=== PATIENT | female | born 1965 | race Hispanic/Latino ===

== ENCOUNTER → 2022-04-05 | Outpatient (CLI) | payer OTHER ==
[~2022-04-05] MED LIST: AMLO-258 PO; IBUP-2070 PO; METO25TA6 PO; REGADENOSON 0.4 MG/5 ML PF SYG IVP SCH
== END | disposition home or self-care (01) ==
LOC: OIH 09:04
PROVIDERS: ATTEND Internal Medicine Cardiovascular Disease
DX: R07.9 Chest pain, unspecified (principal); I10 Essential (primary) hypertension
CPT/HCPCS: 78452; 93017; J2785; A9500 ×2; 96374

== ENCOUNTER → 2023-04-25 | Outpatient (CLI) | payer OTHER ==
[~2023-04-25] MED LIST changes: -REGADENOSON 0.4 MG/5 ML PF SYG IVP SCH
[2023-04-25 12:14] LABS: ALBUMIN 4.1 g/dL (3.5-5.0); CREATININE 0.7 mg/dL (0.5-1.5); POTASSIUM 4.2 mmol/L (3.5-5.1); TOTAL PROTEIN, SERUM 7.9 g/dL (6.0-8.3)
== END | disposition home or self-care (01) ==
LOC: LAB 08:05
PROVIDERS: ATTEND Physician Assistant
DX: E78.5 Hyperlipidemia, unspecified (principal); R07.9 Chest pain, unspecified
CPT/HCPCS: 36415; 80053; 80061

== ENCOUNTER 2025-05-29 11:09 | Emergency (ER) | payer BC, OTHER ==
[~2025-05-29] VITALS: Ht 170.2 cm; Wt 74.4 kg
--- NOTE | 2025-05-29 11:18 | ERN ---
ED Note History of Present Illness Stated Complaint: ANXIETY Chief Complaint: Anxiety/Panic Attack Time Seen by MD: 11:11 Dictation: PATIENT IS A 59-YEAR-OLD FEMALE HERE WITH HER WITH COMPLAINTS OF HAVING ANXIETY AND FEELING DEHYDRATED FOR LAST 2-3 WEEKS. SHE DENIES ANY CHEST PAIN BACK PAIN NO HEADACHE NO SPECIFIC COMPLAINTS. SHE STATES SHE HAD AN ENDOSCOPY DONE ON TUESDAY OF THIS WEEK AND WAS TOLD THAT HER EKG WAS ABNORMAL AND THAT CAUSED HER TO HAVE EVEN MORE ANXIETY. SHE STATES HER SECOND BALLER'S HIS DOCTORSHARSELWYN, HE WAS UNAVAILABLE TODAY AND WAS OUT OF THE OFFICE SO SHE CAME TO THE EMERGENCY ROOM. SHE STATES SHE HAS NOT BEEN TO SEE HER PRIMARY CARE DOCTOR SINCE THE FEELINGS OF ANXIETY AND DEHYDRATION IN THE LAST THREE WEEKS. Allergies: Coded Allergies: diltiazem (Unverified Allergy, Unknown, 03/03/22) lisinopril (Unverified Allergy, Unknown, 03/03/22) losartan (Unverified Allergy, Unknown, 03/03/22) omeprazole (Unverified Allergy, Unknown, 03/03/22) pantoprazole (Unverified Allergy, Unknown, 03/03/22) Home Meds Active Scripts Ibuprofen (Ibuprofen) 600 Mg Tablet, 600 MG PO Q6H PRN for PAIN, #30 TAB Prov:JAYLEN SPAIN MD 03/03/22 Reported Medications Amlodipine Besylate (Amlodipine Besylate) 10 Mg Tablet, 10 MG PO DAILY for 30 Days, #30 TAB 0 Refills 03/03/22 Metoprolol Tartrate (Metoprolol Tartrate) 25 Mg Tablet, 12.5 MG PO BID, TAB 03/03/22 Past Medical History Past Medical History: Hypotension Surgical History: Cholecystectomy Social History: Other History: Not Applicable RN Note Reviewed/Agreed w/PFSH: Yes Review of System Dictation CONSTITUTIONAL: NEGATIVE EXCEPT FOR HPI ANXIETY HEAD/FACE: NEGATIVE EXCEPT FOR HPI EENT: NEGATIVE EXCEPT FOR HPI RESPIRATORY: NEGATIVE EXCEPT FOR HPI GASTROINTESTINAL/ABDOMINAL: NEGATIVE EXCEPT FOR HPI GENITOURINARY: NEGATIVE EXCEPT FOR HPI MUSCULOSKELETAL: NEGATIVE EXCEPT FOR HPI INTEGUMENTARY: NEGATIVE EXCEPT FOR HPI NEUROLOGICAL/PSYCH: NEGATIVE EXCEPT FOR HPI HEMATOLOGIC/LYMPHATIC: NEGATIVE EXCEPT FOR HPI ALL SYSTEMS NEGATIVE, EXCEPT NOTED ABOVE. 13 POINT REVIEW OF SYSTEMS ASSESSED AND ALL NEGATIVE EXCEPT FOR ABOVE. Initial Vital Sign VS Vital Signs Date Time Temp Pulse Resp B/P (MAP) Pulse Ox O2 Delivery O2 Flow Rate FiO2 05/29/25 11:11 97.9 68 18 166/68 99 Room Air Physical Exam Dictation VITAL SIGNS REVIEWED GENERAL APPEARANCE: ALERT, ORIENTED X 3, MILD ACUTE DISTRESS, WELL DEVELOPED, NOURISHED. PATIENT HAS A GENERALIZED ANXIETY NOTED. NO SI OR HI. NO SPECIFIC COMPLAIN HEAD AND FACE: NON-TRAUMATIC. EYES: PERRL, PINK CONJUNCTIVAS, EYELID NO TRAUMA, ANTERIOR CHAMBER WITH ARCUS SENILIS. EARS: PINNAS INTACT AND NO SIGNS OF TRAUMA OR ERYTHEMA EAR CANALS CLEAR AND NO DISCHARGE TM NO ERYTHEMA NOSE: NO DISCHARGE, NO BLEEDING. OROPHARYNX: MOUTH NORMAL, TONGUE PINK, PHARYNX CLEAR,NO ERYTHEMA, TONSILS NO EXUDATES, NO ABSCESSES NOTED, MUCOUS MEMBRANE MOIST NECK: SUPPLE, NON-TENDER, NO THYROMEGALY, NO MASSES, NO JVD, NO BRUITS BREAST:DEFERRED CHEST:NO TENDERNESS, NO CREPITUS, NO PARADOXICAL MOVEMENT, NO RETRACTIONS LUNGS:CLEAR, WELL-VENTILATED, SYMMETRIC, NO RALES, NO WHEEZING, NO RHONCHI, NO STRIDOR, GOOD BREATH SOUNDS BILATERALLY HEART: REGULAR RATE, REGULAR RHYTHM, NO MURMUR, NO GALLOPS VASCULAR: NO PERIPHERAL EDEMA, ABDOMEN: SOFT, POSITIVE BOWEL SOUNDS, NONDISTENDED, NO GUARDING, NONTENDER, NO REBOUND, NO MASSES NO HEPATOMEGALY, NO SPLENOMEGALY, NO COLIN'S SIGN, NO HERNIAS. RECTAL: DEFERRED GENITAL: DEFERRED NEUROLOGICAL: NORMAL SPEECH, MOTOR FUNCTION INTACT, SENSORY FUNCTION INTACT MUSCULOSKELETAL: NECK NONTENDER, FULL RANGE OF MOTION, BACK NONTENDER, FULL RANGE OF MOTION, EXTREMITIES: NONTENDER, FULL RANGE OF MOTION SKIN: COLOR PINK, DRY, NO TURGOR, NO RASH, NO LACERATIONS, NO ABRASIONS, NO CONTUSIONS. LYMPHATIC: DEFERRED Results (Laboratory/Radiology) Laboratory/Radiology Laboratory Tests Test 05/29/25 11:26 White Blood Count 9.7 K/uL (4.8-10.8) Red Blood Count 4.58 MIL/uL (4.00-5.50) Hemoglobin 14.1 g/dL (12.0-16.0) Hematocrit 41.8 % (36-48) Mean Corpuscular Volume 91.3 fL (79-99) Mean Corpuscular Hemoglobin 30.8 pg (27.0-33.0) Mean Corpuscular Hemoglobin Concent 33.7 g/dL (32.0-36.0) Red Cell Distribution Width 12.9 % (11.0-15.5) Platelet Count 240 K/uL (130-400) Mean Platelet Volume 10.3 fL (7.5-10.5) Immature Granulocyte % (Auto) 0.3 % (0-1) Neutrophils (%) (Auto) 76.3 % (40.0-77.0) Lymphocytes (%) (Auto) 17.1 % (21.0-51.0) L Monocytes (%) (Auto) 5.7 % (3.0-13.0) Eosinophils (%) (Auto) 0.2 % (0.0-8.0) Basophils (%) (Auto) 0.4 % (0.0-5.0) Neutrophils # (Auto) 7.4 K/uL (1.8-7.7) Lymphocytes # (Auto) 1.7 K/uL (1.0-4.8) Monocytes # (Auto) 0.6 K/uL (0.1-1.0) Eosinophils # (Auto) 0.02 K/uL (0.00-0.70) Basophils # (Auto) 0.04 K/uL (0.00-0.20) Absolute Immature Granulocyte (auto 0.03 K/uL (0-1) Nucleated Red Blood Cells 0.0 % (0.0-0.19) Sodium Level 141 mmol/L (136-145) Potassium Level 4.0 mmol/L (3.5-5.1) Chloride Level 103 mmol/L (101-111) Carbon Dioxide Level 30 mmol/L (21-32) Blood Urea Nitrogen 12 mg/dL (7-18) Creatinine 0.6 mg/dL (0.5-1.0) Glomerular Filtration Rate Calc 102 mL/min (>90) Random Glucose 100 mg/dL (70-105) Total Calcium 9.8 mg/dL (8.5-10.1) Troponin I High Sensitivity 6 ng/L (4-50) Labs Reviewed?: Yes EKG: (+) NSR EKG Comment: EKG NORMAL SINUS RHYTHM/HEART RATE 64/AXIS NORMAL/NO ECTOPY ED Course ED Course Orders Procedure Category Date Status Time Cbc With Differential LAB 05/29/25 Complete 11:15 Troponin I High LAB 05/29/25 Complete Sensitivity 11:15 Urinalysis Profile LAB 05/29/25 Logged 11:15 12 Lead Ekg Tracing- EKG 05/29/25 Logged Technical 11:15 0.9%Nacl 1000ml (Ns PHA 05/29/25 Complete 1000ml) 11:30 Basic Metabolic Panel LAB 05/29/25 Complete 11:15 Current Medications Medications (Trade) Dose Ordered Sig/Kade Route PRN Reason Start Time Stop Time Status Last Admin Dose Admin Sodium Chloride 1,000 ml @ 0 mls/hr ONCE ONCE IV 05/29/25 11:30 05/29/25 11:31 DC Vital Signs Date Time Temp Pulse Resp B/P (MAP) Pulse Ox O2 Delivery O2 Flow Rate FiO2 05/29/25 11:11 97.9 68 18 166/68 99 Room Air 1155/patient will be discharged home with normal sinus rhythm on her EKG and completely normal labs. She will be referred to her primary care doctor for anxiety/panic attack HEART Score Response (Comments) Value History: Low suspicion (0) 0 Age: 45-65yrs (+1) 1 Risk Factors: 1-2 risk factors (+1) 1 Initial Troponin: Normal limit (0) 0 Total 2 Medical Decision Making MDM MDM: Differential diagnosis: ACS/AMI/electrolyte imbalance/dehydration/anxiety/panic attack Rationale: Tests considered and ordered secondary to shared decision making include: EKG/labs Previous outside records reviewed: Old ER visits. Risk of complication and/or morbidity or mortality of patient management: None Medications-Per medication reconciliation Need for hospitalization: Patient does not meet criteria for hospitalization. No Need for emergency major/minor surgery: No There are no social concerns with this patient. Prescription drug management none Prescriptions will include symptomatic care Patient's prior external medical records from other ER visits were reviewed by me as indicated. Prior testing and results from previous visits were reviewed. Prior tests were taken into account with medical decision making and resource utilization, independent historian/historians were used to obtain complete medical history. I independently interpreted the test that were performed, results were reviewed by me and considered findings on radiology if ordered. Medical management and examination interpretation discussions were had by me with other qualified healthcare professionals as indicated for the patient's care. DX & DISP Disposition: Discharge Departure Impression: Primary Impression: Anxiety as acute reaction to exceptional stress Condition: Stable Additional Instructions: Follow-up with primary care provider in 1 to 2 days. Take medications as directed here in the emergency room. Okay to continue home medications unless otherwise discussed during your visit in the emergency room today. Return to your nearest emergency room if symptoms worsen or if there is no improvement. Call 911 if you need immediate assistance. Take Tylenol or Motrin [id number] as needed and if no contraindications are present. Increase oral hydration. A wound culture or urine culture was ordered here in the emergency room department please follow-up with primary care provider and advise them to get repeat ports from our facility. If you had any Daniel wrap/splints that were applied here, please do not remove them until you see your primary care or specialty. Diet and activity as tolerated, follow up with your primary care doctor for management Referrals: CLYDE MARY MD (PCP) Time of Disposition: 11:56 I have reviewed the case, and I agree with, Diagnosis and Plan LOCO CAMPOS NP May 29, 2025 11:18
[2025-05-29 11:30] LABS: IMMATURE GRANULOCYTE ABSOLUTE 0.03 K/uL (0-1); NUCLEATED RED BLOOD CELLS 0.0 % (0.0-0.19); PLATELET COUNT (AUTO) 240 K/uL (130-400); RED BLOOD CELL COUNT(AUTO) 4.58 MIL/uL (4.00-5.50); RED CELL DISTRIBUTION WIDTH 12.9 % (11.0-15.5); WHITE BLOOD COUNT (AUTO) 9.7 K/uL (4.8-10.8)
[2025-05-29 11:40] LABS: CREATININE 0.6 mg/dL (0.5-1.0); GLOMERULAR FILTR. RATE CALC 102.0 mL/min (>90); GLUCOSE,RANDOM 100.0 mg/dL (70-105); SODIUM SERUM 141.0 mmol/L (136-145); UREA NITROGEN, BLOOD 12.0 mg/dL (7-18)
[2025-05-29] MEDS: 0.9%NACL 1000ML 1,000 ML IV ONE (12:07)
[2025-05-29 12:10] VITALS: BP 147/87; PULSE 60; RESP 18; TEMP 97.9; O2SAT 100
--- NOTE | 2025-05-29 15:04 | EKG ---
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
== END 2025-05-29 12:25 | disposition home or self-care (01) ==
LOC: EDH 11:09
DX: F41.1 Generalized anxiety disorder (principal); F43.0 Acute stress reaction; Z79.899 Other long term (current) drug therapy; Z88.8 Allergy status to other drugs, medicaments and biological substances; Z90.49 Acquired absence of other specified parts of digestive tract
CPT/HCPCS: 36415; 80048; 84484; 85025; 93005; 99284

== ENCOUNTER → 2025-05-31 | Outpatient (CLI) | payer OTHER ==
--- NOTE | 2025-06-01 09:54 | HMCIMG ---
EXAM: CT Cardiac calcium scoring. CLINICAL HISTORY: Screening. TECHNIQUE: Thin collimated axial CT cardiac images were obtained. A CT scan is done according to ALARA (As Low As Reasonably Achievable). CONTRAST: None. COMPARISON: None provided. FINDINGS: Calcium Score: VESSEL Number of lesions Volume mm3 Equi. Mass/mg Calcium score LM 1 2.4 - 1.5 LAD 4 11.8 - 16.7 LCX 1 0.9 - 1.1 RCA 1 21.9 - 19.3 Total 7 37.1 - 38.6 IMPRESSION: The total calcium score is 38.6. 80th percentile. /[place]
== END | disposition home or self-care (01) ==
LOC: RAH 10:23
PROVIDERS: ATTEND Internal Medicine Cardiovascular Disease
DX: Z13.6 Encounter for screening for cardiovascular disorders (principal)
CPT/HCPCS: 75571